=== PATIENT | female | born 1995 | race Caucasian/White ===

== ENCOUNTER 2019-01-25 22:53 | Emergency (ER) | payer BC ==
[~2019-01-25] VITALS: Ht 162.6 cm; Wt 86.4 kg
[2019-01-25 22:58] VITALS: BP 135/66; TEMP 97.8
[2019-01-26 00:12] VITALS: PULSE 97
== END 2019-01-26 00:12 | disposition home or self-care (01) ==
LOC: COL.ER 22:53
DX: S00.452A Superficial foreign body of left ear, initial encounter (principal)

== ENCOUNTER 2019-03-05 09:17 | Emergency (ER) | payer BC ==
[~2019-03-05] VITALS: Ht 162.6 cm; Wt 88.6 kg
[2019-03-05 10:33] LABS: BASO % 0.6 % (0.0-2.0); EOS # 0.1 (0.0-0.7); GRAN # 4.5 (1.4-6.5); GRAN % 65.6 % (42.2-75.2); HEMOGLOBIN 11.5 g/dl (12.5-16.0); LYMPH # 1.7 (1.2-3.4); MEAN CELL VOLUME 85 fl (80.0-100.0); MEAN CORPUSCULAR HEMOGLOBIN 25 pg (27.0-31.0); MEAN CORPUSCULAR HGB CONC 30 g/dl (33.0-37.0); MEAN PLATELET VOLUME 9.2 fl (7.4-10.4); MONO # 0.5 (0.1-0.6); MONO % 7.4 % (1.7-9.3); PLATELET COUNT 302 K/mm3 (130-400); RED BLOOD COUNT 4.61 M/mm3 (4.10-5.30); REDCELL DISTRIBUTION WIDTH-CV 14.8 % (11.5-14.5)
[2019-03-05 10:48] LABS: ALBUMIN 4.2 gm/dL (3.5-5.0); BILIRUBIN,TOTAL 0.4 mg/dL (0.0-1.0); C-REACTIVE PROTEIN 1.9 mg/dL (0.0-0.9); CALCIUM 9.2 mg/dL (8.4-10.2); CREATININE, serum 0.63 (0.52-1.25); POTASSIUM 4.1 mmol/L (3.4-5.0); TOTAL PROTEIN 7.7 gm/dL (6.4-8.2)
[2019-03-05 11:06] VITALS: TEMP 98.4
[2019-03-05] MEDS ORDERED: LEVAQUIN 750MG750 M1 PO (13:49)
[2019-03-05 14:03] VITALS: BP 122/64; PULSE 100
== END 2019-03-05 14:03 | disposition home or self-care (01) ==
LOC: COL.ER 09:17
PROVIDERS: Physician Assistant
DX: J18.9 Pneumonia, unspecified organism (principal)
CPT/HCPCS: J7030; Q9967